=== PATIENT | female | born 1990 | race African-American/Black ===

== ENCOUNTER 2018-01-27 12:20 | Emergency (ER) | payer SELFPAY | END 2018-01-27 15:53 | disposition home or self-care (01) | LOC: ERS 12:20 | DX: T20.40XA Corrosion of unspecified degree of head, face, and neck, unspecified site, initial encounter (principal); F41.9 Anxiety disorder, unspecified; F32.9 Major depressive disorder, single episode, unspecified | CPT/HCPCS: 99283 ==

== ENCOUNTER 2018-06-13 09:11 | Emergency (ER) | payer SELFPAY ==
[2018-06-13] MEDS ORDERED: Cyclobenzaprine 10 MG TAB ONE (09:35)
[2018-06-13] MEDS ORDERED: Ketorolac Tromethamine 60 MG/2 ML VIAL ONE (09:35)
== END 2018-06-13 09:36 | disposition home or self-care (01) ==
LOC: ERS 09:11
DX: M62.838 Other muscle spasm (principal); F41.9 Anxiety disorder, unspecified; F32.9 Major depressive disorder, single episode, unspecified; X50.1XXA Overexertion from prolonged static or awkward postures, initial encounter
CPT/HCPCS: 96372; J1885

== ENCOUNTER 2019-03-25 15:41 | Emergency (ER) | payer SELFPAY ==
[2019-03-25] MEDS ORDERED: HYDROcodone/Acetaminophen 5/325 mg Tablet ONE (17:01)
== END 2019-03-25 17:05 | disposition home or self-care (01) ==
LOC: ERS 15:41
DX: L02.412 Cutaneous abscess of left axilla (principal); F41.9 Anxiety disorder, unspecified; F32.9 Major depressive disorder, single episode, unspecified
CPT/HCPCS: 99283

== ENCOUNTER 2019-10-12 18:24 | Emergency (ER) | payer SELFPAY ==
[2019-10-12] MEDS ORDERED: Acetaminophen 500 MG TAB ONE (19:49)
[2019-10-12 20:03] LABS: Bilirubin Negative (Negative); Blood, Urine Negative (Negative); Clarity Clear (Clear); Glucose, Urine (Dipstick) Normal (Negative); Ketone, Urine Negative (Negative); Leukocyte Negative Leu/uL (Negative); Nitrite Negative (Negative); Protein, Urine (Dipstick) Negative (Neg-Trace); Specific Gravity, Urine 1.025 (1.002-1.036); pH, Urine 5.5 (5.0-9.0)
[2019-10-12 20:04] LABS: Pregnancy Test - Urine (BHCG) Negative (Negative); Pregu Control Background? CLEAR/WHITE (CLR/WHITE); Pregu Control Bar Appear? YES (CONTROL BAR); Specific Gravity 1.025 (1.002-1.036)
[2019-10-14 21:05] LABS: Chlamydia by PCR Not Detected (NotDetected); GC by PCR Not Detected (NotDetected)
== END 2019-10-12 20:38 | disposition home or self-care (01) ==
LOC: ERS 18:24
DX: N89.8 Other specified noninflammatory disorders of vagina (principal); F41.9 Anxiety disorder, unspecified; F31.9 Bipolar disorder, unspecified; F17.210 Nicotine dependence, cigarettes, uncomplicated; Z79.899 Other long term (current) drug therapy
CPT/HCPCS: 81003; 81025; 87480; 87491; 87510; 87591; 87660; 99283

== ENCOUNTER 2020-02-02 18:16 | Emergency (ER) | payer SELFPAY ==
[2020-02-02] MEDS ORDERED: Bupivacaine 0.5% 10 ML VIAL ONE (18:51)
[2020-02-02] MEDS ORDERED: Lidocaine 1% w/Epinephrine 1:100K 20 ML VIAL ONE ×2 (18:51→18:52)
== END 2020-02-02 19:26 | disposition home or self-care (01) ==
LOC: ERS 18:16
DX: K02.9 Dental caries, unspecified (principal); K03.81 Cracked tooth; F17.210 Nicotine dependence, cigarettes, uncomplicated
CPT/HCPCS: 64400; J3490

== ENCOUNTER 2020-02-04 21:06 | Emergency (ER) | payer SELFPAY ==
[2020-02-04] MEDS ORDERED: Lidocaine 1% w/Epinephrine 1:100K 20 ML VIAL ONE (21:14)
[2020-02-04] MEDS ORDERED: HYDROcodone/Acetaminophen 10/325 mg Tablet ONE (21:28)
[2020-02-04] MEDS ORDERED: Boostrix 0.5 ML (Tdap) VIAL ONE (21:39)
== END 2020-02-04 21:37 | disposition home or self-care (01) ==
LOC: ERS 21:06
DX: L02.412 Cutaneous abscess of left axilla (principal); F17.210 Nicotine dependence, cigarettes, uncomplicated; Z23 Encounter for immunization
CPT/HCPCS: 10060; 90471; 90715